=== PATIENT | female | born 1975 | race Two or more races ===

== ENCOUNTER 2016-09-29 13:30 | Emergency (ER) | payer BC, MEDICAID ==
[~2016-09-29] VITALS: Ht 165.1 cm; Wt 76.7 kg
[2016-09-29 15:49] LABS: Urine Bilirubin Negative (Negative); Urine Color Brown (Yellow); Urine Glucose Normal (Normal); Urine Ketone Negative (Negative); Urine Nitrite Negative (Negative); Urine RBC 1595 /hpf (0 - 4); Urine Squamous Epithelial Cell FEW /hpf (<5); Urine Urobilinogen Normal (Negative)
[2016-09-29 15:55] LABS: Urine Blood 3+ /uL (Negative)
[2016-09-29 16:25] VITALS: BP 122/72
== END 2016-09-29 17:02 | disposition home or self-care (01) ==
LOC: ER 13:30
DX: N39.0 Urinary tract infection, site not specified (principal); N13.30 Unspecified hydronephrosis
CPT/HCPCS: 74176; 81001; 81002; 81025

== ENCOUNTER 2017-12-20 13:22 | Emergency (ER) | payer BC, MEDICAID ==
[~2017-12-20] VITALS: Ht 165.1 cm; Wt 76.7 kg
[2017-12-20 15:07] LABS: Urine Bacteria FEW /hpf (None Seen); Urine Blood Negative /uL (Negative); Urine Mucus FEW (None Seen); Urine Specific Gravity 1.025 (1.001-1.035); Urine WBC 3 /hpf (0 - 5)
[2017-12-20] MEDS ORDERED: SODIUM CHLORIDE 0.9% 1,000 ML IVB ONE (15:36)
[2017-12-20] MEDS ORDERED: DIPHENOXYLATE W/ATROPINE 2.5 MG TAB PO ONE (15:45)
[2017-12-20 17:35] LABS: Basophils # (auto) 0 uL; Basophils % (auto) 0.5 % (0.0-2.0); Eosinophils # (auto) 0.2 uL; Hematocrit 35.9 % (36.0-46.0); Hemoglobin 12.2 g/dL (12.2-16.2); Lymphocytes # (auto) 1.5 uL; Lymphocytes % (auto) 23.5 % (10.0-50.0); Mean Corpuscular Hemoglobin 28.9 pg (28.0-32.0); Mean Corpuscular Hgb Conc. 33.8 g/dL (32.0-36.0); Mean Corpuscular Volume 85.3 fL (80.0-100.0); Monocytes # (auto) 0.6 uL; Monocytes % (auto) 9.8 % (0.0-12.0); Neutrophils # (auto) 3.9 uL; Neutrophils % (auto) 63.2 % (37.0-80.0); Nucleated Red Blood Cells % 0.1 %; Platelet Count (auto) 310 10^3/uL (140-450); Red Blood Cells 4.21 10^6/uL (4.0-5.20); Red Cell Distribution Width 15.8 % (11.8-14.3); White Blood Cell 6.2 10^3/uL (4.4-10.8)
[2017-12-20 18:17] LABS: Albumin 3.4 g/dL (3.4-5.0); BUN/Creatinine Ratio 16.1; Bilirubin, Total 0.1 mg/dL (0.2-1.0); Calcium 8.8 mg/dL (8.5-10.1); Potassium 3.8 mmol/L (3.5-5.1); Total Protein 7.9 g/dL (6.4-8.2)
[2017-12-20] MEDS ORDERED: metroNIDAZOLE 500 MG TAB PO ONE (20:00)
[2017-12-20] MEDS ORDERED: cefTRIAXone 1GM/10ml IVPUSH 10 ML IV ONE (20:00)
[2017-12-20 20:46] VITALS: BP 120/67
== END 2017-12-20 21:07 | disposition home or self-care (01) ==
LOC: ER 13:22
DX: K52.9 Noninfective gastroenteritis and colitis, unspecified (principal)
CPT/HCPCS: 36415; 74176; 80053; 81001; 81025; 83690; 85025; 94761; 96361; 96374; 99285; J0696

== ENCOUNTER 2018-02-25 01:42 | Emergency (ER) | payer BC, MEDICAID ==
[~2018-02-25] VITALS: Ht 165.1 cm; Wt 76.2 kg
[2018-02-25 07:20] VITALS: BP 132/70
[2018-02-25] MEDS ORDERED: KETOROLAC TROMETH 60MG/2ML VIAL IM ONE (07:45)
[2018-02-25] MEDS ORDERED: DEXAMETHASONE SOD PHOS 10MG/1ML VIAL INJ IM ONE (07:45)
== END 2018-02-25 07:57 | disposition home or self-care (01) ==
LOC: ER 01:42
DX: M72.2 Plantar fascial fibromatosis (principal)
CPT/HCPCS: 73630; 96372; 99284; J1100; J1885